=== PATIENT | female | born 1980 | race Caucasian/White ===

== ENCOUNTER 2024-05-23 10:41 | Outpatient (AMB) | payer OTHER, SELFPAY ==
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
[2024-05-23 10:46] VITALS: BP 116/72; PULSE 67; O2SAT 98; BMI 25.9
== END 2024-05-23 11:30 | disposition home or self-care (01) ==
PROVIDERS: PCP Internal Medicine; Visit Provider Psychiatry & Neurology Neurology
DX: G50.0 Trigeminal neuralgia (principal); F07.81 Postconcussional syndrome; M54.2 Cervicalgia
CPT/HCPCS: 99204; G2211

== ENCOUNTER → 2024-05-23 10:41 | Outpatient (BNVA) | payer OTHER, SELFPAY | PROVIDERS: PCP Internal Medicine; Visit Provider Psychiatry & Neurology Neurology | DX: G50.0 Trigeminal neuralgia (principal); F07.81 Postconcussional syndrome; M54.2 Cervicalgia | CPT/HCPCS: 99202 ==

== ENCOUNTER → 2024-07-28 15:22 | Outpatient (BNV) | payer OTHER, SELFPAY | PROVIDERS: PCP Internal Medicine; Visit Provider Radiology Diagnostic Radiology | DX: G50.0 Trigeminal neuralgia (principal); V89.2XXA Person injured in unspecified motor-vehicle accident, traffic, initial encounter | CPT/HCPCS: 70553 ==

== ENCOUNTER 2024-07-28 15:23 | Outpatient (REF) | payer OTHER, SELFPAY ==
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
--- OUTSIDE RECORDS SUMMARY | 2024-07-28 15:26 | XMS_ITS | Clinical Summary ---
Author Organization [address] Address [address] [place] [address] Phone Care Team Providers Care [employer] Name Role Phone Connie Abernathy MD Primary Care Provider [phone] Allergies Active Allergy Reactions Criticality Noted Date Comments Amoxicillin Nausea And Vomiting 03/27/2024 Penicillins Nausea And Vomiting 05/19/2010 Medications Medication Sig Dispensed Refills Start Date End Date Status cholecalciferol (VITAMIN D-3) 50 mcg (2,000 unit) capsule Take 1 capsule (2,000 Units total) by mouth 1 (one) time each day. 4 Active ferrous sulfate 325 mg (65 mg elemental iron) tablet Route: Take by mouth. - Oral Active CYANOCOBALAMIN, VITAMIN B-12, ORAL Take by mouth Act leatha OMEGA-3 FATTY ACIDS ORAL Route: Take by mouth. - Oral Active levothyroxine (SYNTHROID, LEVOTHROID) 75 mcg tabletIndications:O ther specified hypothyroidism TAKE 1 TABLET BY MOUTH EVERY DAY 90 tablet 1 4 Active polyethylene glycol (Golytely) 236-22.74-6.74 -5.86 gram solution Take 4L by mouth once for one dose. May substitue any PEG. Starting at 6PM the night before your procedure drink 1 8oz glasses at your own pace until you complete half of the gallon. Finish 2nd half of the gallon 5 hours before your procedure. 4000 mL 5 Active bisacodyL (DULCOLAX) 5 mg EC tablet Take 2 tablets by mouth right before beginning bowel prep. See instructions provided by the office 2 tablet 5 Active gabapentin (NEURONTIN) 100 mg capsule Take 1 capsule every evening 07/11/19 25 Discontinued azithromycin (ZITHROMAX) 250 mg tablet Take 2 tablets (500 mg total) by mouth 1 (one) time each day for 1 day, THEN 1 tablet (250 mg total) 1 (one) time each day for 4 days. 6 each 5 07/16/19 25 Active Problems Problem Noted Date Diagnosed Date Attention deficit hyperactivity disorder (ADHD) 03/27/2024 Vitamin D deficiency 10/24/2023 History of lobular carcinoma in situ of breast 0 02/28/2019 Overview (07/11/2024): Found during breast reduction, abnormal tissue removed, had tamoxifen, not taking Left breast BRCA negative Chronic neck and back pain 09/05/2018 Hypothyroidism 10/29/2015 Anxiety 11/09/2011 Constipation 05/19/2010 Depression 05/19/2010 Overview (03/27/2024): Patient has a therapist at [facility] Migraine 05/19/2010 Encounters Date Type Department Care Team Description 07/11/2024 9:00 AM EST Office Visit Adult Medicine [address] [phone] Connie Abernathy MD Routine general medical examination at a health care facility (Primary Dx); Hypothyroidism due to acquired atrophy of thyroid; Vitamin D deficiency; History of lobular carcinoma in situ of breast; Encounter for screening mammogram for malignant neoplasm of breast; Screening for colon cancer; Acute cough 05/02/2024 4:30 PM EST Office Visit [address] [phone] Kevin Garcia MD Hypothyroidism, unspecified type (Primary Dx) from Last 3 Months Immunizations Name Administration Dates Next Due PPD Test 08/09/2018 Tdap Tetanus diptheria acell ular pertussis (Boostrix; Adacel) 7yo and older 09/20/2014 Surgical History Surgery Date Site/Laterality Comments OTHER SURGICAL HISTORY D&C after miscarriages twice TONSILLECTOMY BREAST REDUCTION 2019 Bilateral BREAST BIOPSY 2019 Left lcis SCREENING MAMMOGRAM 04/23/2022 Bilateral Medical History Medical History Date Comments Back pain Hypothyroid History of lobular carcinoma in situ of breast 02/28/2019 Found during breast reductio n, abnormal tissue removed, had tamoxifen, not taking Family History Medical History Relation Name Comments Liver disease Father HIV; hepatitis C Heart attack Maternal Grandfather fatal Diabetes Maternal Grandmother HTN Drug abuse Mother HIV; ovarian/ce rvical cancer (?dx unclear) Bipolar disorder Sister 1/2 siblings Relation Name Status Comments Father Maternal Grandfather Maternal Grandmother Alive Mother Paternal Grandfather Paternal Grandmother Sister 1/2 siblings Alive Social History Tobacco Use Types Packs/Day Years Used Date Smoking Tobacco: Former Smokeless Tobacco: Never Alcohol Use Standard Drinks/Week Comments Not Currently 0 (1 standard drink = 0.6 oz pur e alcohol) Sex and Gender Information Value Date Recorded Sex Assigned at Not on file Gender Identity Not on file Sexual Orientation Not on file Job Start Date Occupation Industry Not on file Not on file Not on file Obstetrics History Last Filed Vital Signs Vital Sign Reading Time Taken Comments Blood Pressure 100/58 07/11/2024 8:52 AM EST Pulse 78 07/11/2024 8:52 AM EST Temperature 36.2 ??C (97.2 ??F) 07/11/2024 8:52 AM ES T Respiratory Rate 16 07/11/2024 8:52 AM EST Oxygen Saturation 99% 07/11/2024 8:52 AM EST Inhaled Oxygen Concentration - - Weight 72.4 kg (159 lb 9.6 oz) 07/11/2024 8:52 A M EST Height 165.1 cm (5' 5 ) 07/11/2024 8:52 AM EST Body Mass Index 26.56 07/11/2024 8:52 AM EST Plan of Treatment Upcoming Encounters Date Type Department Care Team (Late st Contact Info) Description 08/16/2024 12:00 PM EST Appointment [facility] [address] [place] [address] Melvin Soto MD [address] [facility] [address] [place] [id number] Health Maintenance Due Date Last Done Comments COVID-19 Vaccine (#1) 1984 Pneumococcal Vaccine: Pediat rics (0 to 5 Years) and At-Risk Patients (6 to 64 Years) (1 of 2 - PCV) 1985 Hepatitis B Vaccines (1 of 3 - 19+ 3-dose series) 1998 Colorectal Cancer Screening: Colonoscopy 06/03/2022 Depression Screening 06/03/2022 HIV Screening 06/03/2022 Hepatitis C Screening 06/03/2022 Social Influencers of Health Screening 06/03/2022 Breast Cancer Screening 10/22/2023 10/21/2021 Influenza Vaccine (#1) 2024 DTaP,Tdap,and Td Vaccines (2 - Td or Tdap) 09/20/2024 09/20/2014 Cervical Cancer Screening: HPV 03/24/2026 03/24/2021 Cholesterol Screening (Lipid Panel) 05/26/2026 05/26/2021 HIB Vaccines Aged Out No longer eligi ble based on patient's age to complete this topic HPV Vaccines Aged Out No longer eligi ble based on patient's age to complete this topic Hepatitis A Vaccines Aged Out No long er eligible based on patient's age to complete this topic IPV Vaccines Aged Out No longer eligi ble based on patient's age to complete this topic MMR Vaccines Aged Out No longer eligi ble based on patient's age to complete this topic Meningococcal ACWY Vaccine Aged Out N o longer eligible based on patient's age to complete this topic RSV Immunization Patients Un caren 20 months Aged Out No longer eligible b ased on patient's age to complete this topic Varicella Vaccines Aged Out No longer eligible based on patient's age to complete this topic Procedures Procedure Name Priority Date/Time Associated Diagnosis Comments VITAMIN D 25 HYDROXY Routine 05/01/2024 12:24 PM EST Fatigue THYROID STIMULATING HORMONE Routine 05/01/2024 12:24 PM EST Fatigue IRON AND TIBC Routine 05/01/2024 12:24 PM EST Fatigue FERRITIN Routine 05/01/2024 12:24 PM EST Fatigue SCREENING MAMMOGRAPHY BI 2-VIEW BREAST INC CAD Routine 10/21/2021 9:08 AM EDT Encounter for other screening for malignant neoplasm of breast LIPID PANEL Routine 05/26/2021 HM HPV Routine 03/24/2021 from Last 3 Months or Most Recently Relevant to Health Maintenance Results * Iron and TIBC (05/01/2024 12:24 PM EST) Iron 89 40 - 150 mcg/dL LAB CHEMISTRY METHOD 05/01/2024 5:32 PM EST [facility] TIBC 326 250 - 450 mcg/dL LAB CHEMISTRY METHOD 05/01/2024 5:32 PM EST [facility] Iron Saturation 27 15 - 50 % LAB CHEMISTRY METHOD 05/01/2024 5:32 PM EST [facility] Blood Venous blood specimen / Unknown Venipuncture / Unknown 05/01/2024 12:24 PM EST 05/01/2024 12:24 PM EST Kevin Garcia MD LAB BLOOD ORDERABLES [facility] [address] [place] [address], * (ABNORMAL) Vitamin D 25 hydroxy (05/01/2024 12:24 PM EST) Vit D, 25-Hydroxy 25.8(L) 30.0 - 80.0 ng/mL LAB CHEMISTRY METHOD 05/01/2024 5:39 PM EST [facility] Blood Venous blood specimen / Unknown Venipuncture / Unknown 05/01/2024 12:24 PM EST 05/01/2024 12:24 PM EST Kevin Garcia MD LAB BLOOD ORDERABLES [facility] [address] [place] [address], * Thyroid stimulating hormone (05/01/2024 12:24 PM EST) Pathologist [facility] TSH 1.41 0.40 - 4.00 mcIU/mL LAB CHEMISTRY METHOD 05/01/2024 5:39 PM EST [facility] Blood Venous blood specimen / Unknown Venipuncture / Unknown 05/01/2024 12:24 PM EST 05/01/2024 12:24 PM EST Kevin Garcia MD LAB BLOOD ORDERABLES Performing Organization Address [facility] de Phone Number [facility] [address] [place] [address], * Ferritin (05/01/2024 12:24 PM EST) [facility] Ferritin 24 8 - 252 ng/mL LAB CHEMISTRY METHOD 05/01/2024 5:35 PM EST [facility] Blood Venous blood specimen / Unknown Venipuncture / Unknown 05/01/2024 12:24 PM EST 05/01/2024 12:24 PM EST Kevin Garcia MD LAB BLOOD ORDERABLES Performing Organization Address [facility] de Phone Number [facility] [address] [place] [address], * SCREENING MAMMOGRAPHY BI 2-VIEW BREAST INC CAD (10/21/2021 9:08 AM EDT) Anatomical Region Laterality Modality Radiographic Candice ging 09/30/2021 10:0 8 AM EDT Narrative 10/21/2021 12:00 PM EDT This is a summary report. The complete report is available in the patient's medical record. If you cannot access the medical record, please contact the sending organization for a detailed fax or copy. Full field digital screening 2D and 3D mammography, reviewed with CAD and compared to previous mammograms of 01/02/2019 and 08/05/1999 and.. ??The breasts are composed of fatty and fibroglandular tissue. ??No suspicious mass, architectural distortion or suspicious calcifications are identified. IMPRESSION: : No mammographic evidence of malignancy. BIRADS 1-Negative; N. 5 year breast cancer risk assessment N/A Lifetime breast cancer risk assessment N/A Breast cancer risk category Breast cancer risk not assessed Procedure Note Juanis Corona MD - 06/15/2022 This is a summary report. The complete report is available in thepatient's medical record. If you cannot access the medical record, pleasecontact the sending organization for a detailed fax or copy. Full field digital screening 2D and 3D mammography, reviewed with CAD andcompared to previous mammograms of 01/02/2019 and 08/05/1999 and.. Thebreasts are composed of fatty and fibroglandular tissue. No suspiciousmass, architectural distortion or suspicious calcifications areidentified. IMPRESSION: : No mammographic evidence of malignancy. BIRADS 1-Negative; N. 5 year breast cancer risk assessment N/A Lifetime breast cancer risk assessment N/A Breast cancer risk category Breast cancer risk not assessed Patrick ALBA IMG XR PROCEDURE S * (ABNORMAL) Lipid panel (05/26/2021) Pathologist [facility] LDL/HDL Ratio 3 0 - 4 Triglycerides 59 0 - 150 mg/dL Cholesterol 182 0 - 200 mg/dL HDL 66 40 mg/dL LDL Cholesterol 105(A) 0 - 100 mg/dL Blood Venous blood specimen / Unknown Historical Provider LAB BLOOD ORDERAB LES * Cervical Cancer Screening: HPV (03/24/2021) Pathologist [facility] Cervical Cancer Screening: HPV negative,a bstracted Historical Provider MD AXEL CARR E from Last 3 Months or Most Recently Relevant to Health Maintenance Care Teams [employer] Relationship Specialty Start Date End Date Connie Abernathy MD [address] [place] [address] PCP - General Internal Medicine 02/12/21
--- OUTSIDE RECORDS SUMMARY | 2024-07-28 15:26 | XMS_ITS | Encounter Summary ---
Author Organization [facility] [place] [address] Care Team Providers Care Client Account Specialist Name Role Phone Connie Abernathy MD Primary Care Provider [phone] Reason for Referral * Consultation (Routine) - Authorized Specialty Diagnoses / Procedures Referred By Contact Referred To Contact Gastroenterology Diagnoses Screening for colon cancer Connie Abernathy MD [address] [place] [id number] [facility] Gastroenterology [address] [address] Referral ID Status Reason Start Date Expiration Date Visits Requested Visits Authorized [id number] Authorized Specialty Services Required 07/11/2024 07/11/2025 1 1 * Imaging (Routine) - Authorized Specialty Diagnoses / Procedures [facility] Referred To Contact Radiology Diagnoses Encounter for screening mammogram for malignant neoplasm of breast Procedures MG Mammo Digital Screening bryantat Connie Abernathy MD [address] [place] [address] [address], [place] Referral ID Status Reason Start Date Expiration Date V isits Requested Visits Authorized [id number] Authorized 07/11/2024 07/11/2025 1 1 Reason for Visit * Reason Comments Annual Exam Hypothyroidism Cough Encounter Details Date Type Department Care Team (Late st Contact Info) Description 07/11/2024 9:00 AM EST Office Visit Adult Medicine [facility] [address] [place] [address] Connie Abernathy MD [address] [place] [phone] Routine general medical examination at a health care facility (Primary Dx); Hypothyroidism due to acquired atrophy of thyroid; Vitamin D deficiency; History of lobular carcinoma in situ of breast; Encounter for screening mammogram for malignant neoplasm of breast; Screening for colon cancer; Acute cough Social History Tobacco Use Types Packs/Day Years [...] file Not on file Not on file documented as of this encounter Last Filed Vital Signs Vital Sign Reading [...] Mass Index 26.56 07/11/2024 8:52 AM EST documented in this encounter Ordered Prescriptions Prescription Sig Dispensed Refills Start Date End Da te azithromycin (ZITHROMAX) 250 mg tablet Take 2 tablets (500 mg total) by mouth 1 (one) time each day for 1 day, THEN 1 tablet (250 mg total) 1 (one) time each day for 4 days. 6 each 07/11/2024 07/16/2024 documented in this encounter Progress Notes * Connie Abernathy MD - 07/11/2024 9:00 AM EST CHIEF COMPLAINT: Chief Complaint Patient presents with Annual Exam Hypothyroidism Cough IDENTIFIER: Kelly Lay is a 44 y.o. old female who comes for evaluation of general medical health. HPI: She comes for her yearly exam. She notes that all of her children have the flu, none have COVID andshe started with a cough yesterday bringing up some brown sputum, mild shortness of breath, no fever or sore throat, no ear pain, no shaking chills. She is following ongoing with neurology with previous trigeminal neuralgia, she is taking vitamin B12, magnesium, continues on thyroid replacement forhypothyroidism and is taking vitamin D for vitamin D deficiency. She did recently see endocrine andthyroid levels have been good. She will be due for tetanus booster at the end of August. She has nothad a mammogram in several years and has never had a colonoscopy. She did have lobular carcinoma insitu found during a routine breast reduction. She has been following with breast services as well as oncology. She continues on omega-3 fatty acids as well. She does have anxiety and ADHD, is awaiting a callback from [facility]. She is declining flu vaccine. ROS: General: No malaise, significant weight loss or fever HEENT: No changes in hearing or vision, nose bleeds Neck: No pain or significant neck swelling Respiratory: As noted did Cardiovascular: No chest pain, palpitations, no orthopnea GI: No nausea or vomiting, diarrhea, blood in stools or black stools : No dysuria, frequency or incontinence Musculoskeletal: No joint pain or swelling, no muscle pain or stiffness Skin: No lesions, rash or itching Psych: As noted Heme/lymph: No prolonged bleeding, bruising, easily Endocrine: No cold or heat intolerance, polyuria, polydipsia Neuro no persistent headache, syncope, seizures, weakness or numbness The remainder of the review of systems is noncontributory. PAST MEDICAL HISTORY: Patient Active Problem List Diagnosis Date Noted Attention deficit hyperactivity disorder (ADHD) 03/27/2024 Vitamin D deficiency 10/24/2023 History of lobular carcinoma in situ of breast 02/28/2019 Chronic neck and back pain 09/05/2018 Hypothyroidism 10/29/2015 Anxiety 11/09/2011 Constipation 05/19/2010 Depression 05/19/2010 Migraines 05/19/2010 SURGICAL HISTORY: Past Surgical History: Procedure Laterality Date BREAST BIOPSY Left 2018 [facility] BREAST REDUCTION Bilateral 2018 OTHER SURGICAL HISTORY D&C after miscarriages twice SCREENING MAMMOGRAM Bilateral 04/23/2022 TONSILLECTOMY IMMUNIZATIONS: Immunization History Administered Date(s) Administered PPD Test 08/09/2018 Tdap Tetanus diptheria acellular pertussis (Boostrix; Adacel) 7yo and older 09/20/2014 SOCIAL HISTORY: Social History Tobacco Use Smoking status: Former Smokeless tobacco: Never Substance Use Topics Alcohol use: Not Currently FAMILY HISTORY: Family History Problem Relation Name Age of Onset Drug abuse Mother HIV; ovarian/cervical cancer (?dx unclear) Liver disease Father HIV; hepatitis C Bipolar disorder Sister 1/2 siblings Diabetes Maternal Grandmother HTN Heart attack Maternal Grandfather 45 fatal ACTIVE MEDICATIONS: Outpatient Medications Marked as Taking for the 07/11/24 encounter (Office Visit) with Connie Abernathy MD Medication Sig Dispense Refill cholecalciferol (VITAMIN D-3) 50 mcg (2,000 unit) capsule Take 1 capsule (2,000 Units total) by mouth 1 (one) time each day. CYANOCOBALAMIN, VITAMIN B-12, ORAL Take by mouth ferrous sulfate 325 mg (65 mg elemental iron) tablet Route: Take by mouth. - Oral levothyroxine (SYNTHROID, LEVOTHROID) 75 mcg tablet TAKE 1 TABLET BY MOUTH EVERY DAY 90 tablet 1 OMEGA-3 FATTY ACIDS ORAL Route: Take by mouth. - Oral MEDICATION DISCONTINUED/REORDERED: Medications Discontinued During This Encounter Medication Reason gabapentin (NEURONTIN) 100 mg capsule ALLERGIES: Amoxicillin and Penicillins PHYSICAL EXAM: Blood pressure 100/58, pulse 78, temperature 36.2 ??C (97.2 ??F), temperature source Temporal, resp. rate 16, height 1.651 m (65 ), weight 72.4 kg (159 lb 9.6 oz), last menstrual period 07/01/2024, SpO2 99%. Body mass index is 26.56 kg/m??.BMI is greater than 25.0 (above the normal range) - see Plan General: patient is in no acute distress. Eye exam: INDIRA EDWARDS. ENT exam: pharynx is clear no tonsillar enlargement or exudates. Tympanic membranes are clear without air fluid levels or erythema. Neck supple without adenopathy, no thyromegaly. Lungs clear with auscultation. Heart: regular S1S2 without murmur, rub or gallop. Abdominal exam: soft, nontender, no masses or organomegaly. Bowel soundsnormal active. Extremities without cyanosis, clubbing or edema. Neurological: exam is nonfocal. Strength, reflexes, sensation in the upper and lower extremities intact. Skin exam: without lesions. LABS/IMAGING: Lab Results Component Value Date CHOL 182 05/26/2021 LDL 105 (A) 05/26/2021 HDL 66 05/26/2021 TRIG 59 05/26/2021 Lab Results Component Value Date TSH 1.41 05/01/2024 Vitamin D level 25.8 Last chemistries normal IMPRESSION: 1. Routine general medical examination at a health care facility 2. Hypothyroidism due to acquired atrophy of thyroid 3. Vitamin D deficiency 4. History of lobular carcinoma in situ of breast 5. Encounter for screening mammogram for malignant neoplasm of breast 6. Screening for colon cancer 7. Acute cough PLAN: She is following with endocrine, thyroid levels have been appropriate and she did increase her vitamin D intake after her last level. She is seeing neurology with previous trigeminal neuralgia, is referred for mammogram as well as screening colonoscopy. She will follow ongoing with breast services and oncology given the previous lobular carcinoma in situ. She does have an acute cough, all of her children are sick with the flu which she does not appear to have today, will start on Zithromax. Judd do home COVID testing and call if it is positive. 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 Ongoing exercise, weight control, regular eye exam and monthly self br east exam recommended. Did you have a dental visit in the last 12 months? No Did you have a dental problem in the last 6 months? No, dental visit was recommended to her I have reviewed the following sections of the chart: medical history, social history, family history Genetic screening was performed: She has already had testing and is negative documented in this encounter Plan of Treatment Upcoming Encounters Date Type Department Care Team (Late st Contact Info) Description 08/16/2024 12:00 PM EST Appointment [facility] Endoscopy [address] [place] [phone] Melvin Soto MD [address] [address] Scheduled Orders Name Type Priority Associated Diagnoses Orde r Schedule MG Mammo Digital Screening bilat Imaging Routine Encounter for screening mammogram for malignant neoplasm of breast 1 Occurrences starting 07/11/2024 until 07/11/2025 Scheduled Referrals Name Type Priority Associated Diagnoses Order Schedule Ambulatory referral to Gastroenterology Outpatient Referral Routine Screening for colon cancer 1 Occurrences starting 07/11/2024 until 07/11/2025 documented as of this encounter Visit Diagnoses Diagnosis Routine general medical examination at a health care facility- Primary Hypothyroidism due to acquired atrophy of thyroid Vitamin D deficiency History of lobular carcinoma in situ of breast Encounter for screening mammogram for malignant neoplasm of breast Screening for colon cancer Special screening for malignant neoplasms, colon Acute cough documented in this encounter Discontinued Medications Medication Sig Discontinue Reason Start Date End Da te gabapentin (NEURONTIN) 100 mg capsule Take 1 capsule every evening 07/11/2024 documented as of this encounter Care Teams Client Account Specialist Relationship Specialty Start Date End Date Connie Abernathy MD [address] [place] [address] PCP - General Internal Medicine 02/12/21 documented as of this encounter
[2024-07-28] MEDS: gadobutroL 7.5 ML VIAL IVPUSH (16:08)
== END 2024-07-28 15:24 | disposition home or self-care (01) ==
LOC: HO.MRI 15:23
PROVIDERS: PCP Internal Medicine; Visit Provider Psychiatry & Neurology Neurology
DX: G50.0 Trigeminal neuralgia (principal); F07.81 Postconcussional syndrome
CPT/HCPCS: 70553; A9585

== ENCOUNTER 2024-10-26 08:05 | Outpatient (REF) | payer OTHER, SELFPAY ==
--- NOTE | ~2024-10-26 | XR_ITS ---
EXAMINATION: XR CERVICAL SPINE CLINICAL INFORMATION: M54.2 - Cervicalgia COMPARISON: None available. TECHNIQUE: 3 views of the cervical spine were obtained. FINDINGS: Craniocervical junction is intact and aligned. Marginal osteophyte formation and endplate sclerosis and decreased intervertebral disc height C5-6 and C6-7 levels. No acute cortical disruption. No gross malalignment. No lytic or blastic lesions. Upper airway is patent. XR/XR cervical spine 3V IMPRESSION: Multilevel cervical spondylosis C5-6 and to a lesser extent C6-7 levels. Electronically signed by: Ananda Howard MD 10/26/2024 12:40 PM EDT
--- OUTSIDE RECORDS SUMMARY | 2024-10-26 08:14 | XMS_ITS | Clinical Summary ---
Author Organization [facility] Address [address] [place] [id number] Care Team Providers Care Director Of Market Analysis Name Role Phone Carlos Alberto Alvarado MD Primary Care Provider Allergies Active Allergy Reactions Criticality Noted Date Comments Amoxicillin 12/01/2018 Oxycodone Rash Low 12/01/2018 Penicillins 12/01/2018 Medications Medication Sig Dispensed Refills Start Date End Date Status levothyroxine (SYNTHROID, LEVOXYL) tablet 25 mcg Take 1 tablet (25 mcg total) by mouth every morning on an empty stomach. 0 Active ferrous sulfate 325 (65 FE) MG tablet Take 1 tablet (325 mg total) by mouth every morning with breakfast. 0 Active levothyroxine (SYNTHROID) tablet 75 mcg Take 1 tablet (75 mcg total) by mouth every morning on an empty stomach. 0 Active Active Problems No known active problems Family History Medical History Relation Name Comments No Sig Med Hx Daughter Hepatitis Father Other Father Not much known history Other Half-Brother paternal- Nocon tact Other Half-Sister 1 paternal- Noco ntact Other Half-Sister 2 maternal - hea lthy Other Half-Sister 3 maternal - hea lthy Cancer Maternal Uncle 1 Lung Cancer Maternal Uncle 2 Lung Cancer Mother Ovarian cancer No Sig Med Hx Son 1 No Sig Med Hx Son 2 No Sig Med Hx Son 3 No Sig Med Hx Son 4 Relation Name Status Comments Daughter Alive Father Half-Brother Alive Half-Sister 1 Alive Half-Sister 2 Alive Half-Sister 3 Alive Maternal Grandfather Maternal Grandmother Alive Maternal Uncle 1 Alive Maternal Uncle 2 Alive Mother Son 1 Alive Son 2 Alive Son 3 Alive Son 4 Alive Social History Tobacco Use Types Packs/Day Years Used Date Smoking Tobacco: Former Cigarettes 0.5 15 Q uit: 08/25/2018 Smokeless Tobacco: Never Tobacco Cessation:Counseling Given: No Comments:Off and on Alcohol Use Standard Drinks/Week Comments No 0 (1 standard drink = 0.6 oz pur e alcohol) Sex and Gender Information Value Date Recorded Sex Assigned at Not on file Gender Identity Not on file Sexual Orientation Not on file Job Start Date Occupation Industry Not on file Not on file Not on file Last Filed Vital Signs Vital Sign Reading Time Taken Comments Blood Pressure 121/65 03/15/2023 11:43 AM EDT Pulse 64 03/15/2023 11:43 AM EDT Temperature 37 ??C (98.6 ??F) 03/15/2023 11:43 AM EDT Respiratory Rate - - Oxygen Saturation 100% 03/15/2023 11:43 AM EDT Inhaled Oxygen Concentration - - Weight 69.2 kg (152 lb 9.6 oz) 03/15/2023 11:43 AM EDT Height 165.1 cm (5' 5 ) 03/15/2023 11:43 AM EDT Body Mass Index 25.39 03/15/2023 11:43 AM EDT Plan of Treatment Health Maintenance Due Date Last Done Comments Hepatitis B Vaccines (1 of 3 - 3-dose series) 1979 Hepatitis C Screening 1979 COVID-19 Vaccine (#1) 1979 Depression Screening 1991 Preventative Health Evaluation 1997 Cervical Cancer Screening (P ap Smear) 2000 Influenza Vaccine (#1) 2024 Colon Cancer Screening (Colonoscopy) 2024 DTap / Tdap / Td (2 - Td or Tdap) 09/20/2024 015 Pneumococcal Vaccine Aged Out No long er eligible based on patient's age to complete this topic RSV Ped < 20 months Aged Out No longe r eligible based on patient's age to complete this topic Care Teams Director Of Market Analysis Relationship Specialty Start Date End Date Carlos Alberto Alvarado MD PCP - General Internal Medicine 12/01/18
--- OUTSIDE RECORDS SUMMARY | 2024-10-26 08:14 | XMS_ITS | Clinical Summary ---
Author Organization [address] Address [address] [place] [phone] Phone Care Team Providers Care Multi Site Leasing Consultant Name Role Phone Connie Abernathy MD Primary Care Provider [phone] Allergies Active Allergy Reactions Criticality Noted Date Comments Amoxicillin Nausea And Vomiting 03/27/2024 Penicillins Nausea And Vomiting 05/19/2010 Medications ferrous sulfate 325 mg (65 mg elemental iron) tablet Route: Take by mouth. - Oral Active CYANOCOBALAMIN, VITAMIN B-12, ORAL Take by mouth Active OMEGA-3 FATTY ACIDS ORAL Route: Take by mouth. - Oral Active levothyroxine (SYNTHROID, LEVOTHROID) 75 mcg tabletIndications :Other specified hypothyroidism TAKE 1 TABLET BY MOUTH EVERY DAY 90 tablet 1 024 Active polyethylene glycol (Golytely) 236-22.74-6.74 -5.86 gram solution Take 4L by mouth once for one dose. May substitue any PEG. Starting at 6PM the night before your procedure drink 1 8oz glasses at your own pace until you complete half of the gallon. Finish 2nd half of the gallon 5 hours before your procedure. 4000 mL 025 Active bisacodyL (DULCOLAX) 5 mg EC tablet Take 2 tablets by mouth right before beginning bowel prep. See instructions provided by the office 2 tablet 025 Active cholecalciferol (VITAMIN D-3) 50 mcg (2,000 unit) capsule TAKE 1 CAPSULE BY MOUTH EVERY DAY 90 capsule 3 025 Active cholecalciferol (VITAMIN D-3) 50 mcg (2,000 unit) capsule Take 1 capsule (2,000 Units total) by mouth 1 (one) time each day. 024 2024 Discontinued Active Problems Problem Noted Date Diagnosed Date [...] Overview (03/27/2024): Patient has a therapist at [facility] 05/19/2010 Encounters Date Type Department Care Team Description 08/13/2024 Telephone Gastroenterology - [address] [facility] [address] [place] [address] Melvin Soto MD Special Procedure from Last 3 Months Immunizations Name Administration [...] drink = 0.6 oz pur e alcohol) Comments Unknown Sex and Gender Information Value Date Recorded Sex Assigned at Not on file Legal Sex Female 1:01 AM EST Gender Identity Not on file Sexual Orientation Not on file Obstetrics History Last Filed [...] Care Team (Late st Contact Info) Description 12/31/2024 4:30 PM EDT Office Visit Adult Medicine [address] [phone] Kaya Feldman PA [address] [place] [address] Health Maintenance Due Date Last Done Comments COVID-19 Vaccine (#1) 1984 Hepatitis B Vaccines (1 of 3 - 19+ 3-dose series) 1998 Pneumococcal Vaccine: Pediat rics (0 to 5 Years) and At-Risk Patients (6 to 64 Years) (1 of 2 - PCV) 1998 Colorectal Cancer Screening: Colonoscopy 06/03/2022 Depression Screening 06/03/2022 HIV Screening 06/03/2022 Hepatitis C Screening 06/03/2022 Social Influencers of Health Screening 06/03/2022 Breast Cancer Screening 10/22/2023 10/21/2021 DTaP,Tdap,and Td Vaccines (2 - Td or Tdap) 09/20/2024 09/20/2014 Influenza Vaccine (Season Ended) 2025 Cervical Cancer Screening: HPV 03/24/2026 03/24/2021 Cholesterol [...] patient's age to complete this topic Meningococcal B Vaccine Aged Out No l onger eligible based on patient's age to complete this topic RSV Immunization Patients Un caren 20 months Aged Out No longer eligible b ased on patient's age to complete this topic Varicella Vaccines Aged Out No longer eligible based on patient's age to complete this topic Procedures Procedure Name Priority Date/Time Associated Diagnosis Comments SCREENING MAMMOGRAPHY BI 2-VIEW BREAST INC CAD Routine 10/21/2021 9:08 AM EDT Encounter for other screening for malignant neoplasm of breast LIPID PANEL Routine 05/26/2021 HM HPV Routine 03/24/2021 from Last 3 Months or Most Recently Relevant to Health Maintenance Results * SCREENING MAMMOGRAPHY BI 2-VIEW BREAST INC [...] risk not assessed Patrick ALBA IMG XR PROCEDURES Final Result * (ABNORMAL) Lipid panel (05/26/2021) [facility] LDL/HDL Ratio 3 0 - 4 Triglycerides 59 0 - 150 mg/dL Cholesterol 182 0 - 200 mg/dL HDL 66 >=40 mg/dL LDL Cholesterol 105(A) 0 - 100 mg/dL Blood Venous blood specimen / Unknown Historical Provider LAB BLOOD ORDERABLES Debi l Result * Cervical Cancer Screening: HPV (03/24/2021) Pathologist [facility] Cervical Cancer Screening: HPV negative,a bstracted Historical Provider HEALTH MAINTENANCE Final Result from Last 3 Months or Most Recently Relevant to Health Maintenance Insurance [facility] [employer] Care Teams Multi Site Leasing Consultant Relationship Specialty Start Date End Date Connie Abernathy MD [address] [place] [address] PCP - General Internal Medicine 02/12/21
== END 2024-10-26 08:06 | disposition home or self-care (01) ==
LOC: HO.XRAY 08:05
PROVIDERS: PCP Internal Medicine; Visit Provider Psychiatry & Neurology Neurology
DX: M54.2 Cervicalgia (principal)
CPT/HCPCS: 72040

== ENCOUNTER → 2024-10-26 08:11 | Outpatient (BNV) | payer OTHER, SELFPAY | PROVIDERS: PCP Internal Medicine; Visit Provider Radiology Diagnostic Radiology | DX: M47.812 Spondylosis without myelopathy or radiculopathy, cervical region (principal) | CPT/HCPCS: 72040 ==

== ENCOUNTER 2025-02-07 07:33 | Outpatient (AMB) | payer OTHER, SELFPAY ==
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
[2025-02-07 07:35] VITALS: BP 120/82; PULSE 50; O2SAT 99; BMI 25.6
--- OUTSIDE RECORDS SUMMARY | 2025-02-07 07:35 | XMS_ITS | Encounter Summary ---
Author Organization [facility] [place] [address] Care Team Providers Care Energy Conservation Engineer Name Role Phone Connie Abernathy MD Primary Care Provider [phone] Reason for Visit * Reason Onset Date Comments Letter for School/Work 02/01/2025 Encounter Details Date Type Department Care Team (Late st Contact Info) Description 02/01/2025 Telephone Adult Medicine [facility] [address] [place] [address] Connie Abernathy MD [address], [place] [id number] Letter for School/Work Social History Tobacco Use Types Packs/Day Years Used Date Smoking Tobacco: Former Smokeless Tobacco: Never Alcohol Use Standard Drinks/Week Comments Not Currently 0 (1 standard drink = 0.6 oz pur e alcohol) Comments Unknown Sex and Gender Information Value Date Recorded Sex Assigned at Not on file Legal Sex Female 1:01 AM EST Gender Identity Not on file Sexual Orientation Not on file documented as of this encounter Progress Notes * Erica Mishra - 02/01/2025 3:51 PM EDT Letter Request Call: Who is requesting the letter?: The patient Reason for letter: for employment Specific notations needed in body of letter: Patient has no restrictions and is able to work Date needed for completion: susie When completed: call patient at [phone] and she will pick it up documented in this encounter Plan of Treatment Not on file documented as of this encounter Visit Diagnoses Not on filedocumented in this encounter Care Teams Energy Conservation Engineer Relationship Specialty Start Date End Date Connie Abernathy MD [address] [place] [id number] PCP - General Internal Medicine 02/12/21 documented as of this encounter
--- OUTSIDE RECORDS SUMMARY | 2025-02-07 07:36 | XMS_ITS | Clinical Summary ---
Author Organization [facility] Address [address] [place] [address] Care Team Providers Care Firer Diesel Locomotive Name Role Phone Carlos Alberto Alvarado MD Primary Care Provider [phone] Allergies Active Allergy Reactions Criticality Noted Date [...] 64 03/15/2023 11:43 AM EDT Temperature 37 C (98.6 F) 03/15/2023 11:43 AM EDT Respiratory Rate - [...] Cervical Cancer Screening (P ap Smear) 2000 Colon Cancer Screening (Colonoscopy) 2024 DTap / Tdap / Td (2 - Td or Tdap) 09/20/2024 015 Influenza Vaccine (#1) 2025 Pneumococcal Vaccine Aged Out No long er eligible based on patient's age to complete this topic RSV Ped < 20 months Aged Out No longe r eligible based on patient's age to complete this topic Care Teams Firer Diesel Locomotive Relationship Specialty Start Date End Date Carlos Alberto Alvarado MD PCP - General Internal Medicine 12/01/18
--- OUTSIDE RECORDS SUMMARY | 2025-02-07 07:36 | XMS_ITS | Clinical Summary ---
Author Organization [facility] Address [address] [place] [address] Phone Care Team Providers Care Ply Bander Name Role Phone Connie Abernathy MD Primary Care Provider [phone] Social History Tobacco Use Types Packs/Day Years Used Date Smoking Tobacco: Never Assessed Comments Unknown Sex and Gender Information Value Date Recorded Sex Assigned at Not on file Legal Sex Female 11:11 AM EDT Gender Identity Not on file Sexual Orientation Not on file Plan of Treatment Not on file Medical Devices Not on file Insurance A's Child [employer]ANCE [employer]CO [employer] A's Child [employer] ACO [facility] A[facility] Care Teams Ply Bander Relationship Specialty Start Date End Date Connie Abernathy MD [address] [place] [address] PCP - General Internal Medicine 04/10/24 Additional Source Comments The information contained in this document represents components of the legal health record. It is not the complete legal health record.[facility]
--- OUTSIDE RECORDS SUMMARY | 2025-02-07 07:36 | XMS_ITS ---
Author Name [facility] Organization Unknown Care Team Organization Name Specialty Phone Email Start Date End Da te [facility] Connie Abernathy Primary Care 05/04/2022
== END 2025-02-07 08:11 | disposition home or self-care (01) ==
LOC: HO.HSMS 07:34
PROVIDERS: PCP Internal Medicine; Visit Provider Psychiatry & Neurology Neurology
DX: G50.0 Trigeminal neuralgia (principal); F07.81 Postconcussional syndrome; M54.2 Cervicalgia
CPT/HCPCS: 99214

== ENCOUNTER → 2025-02-07 07:33 | Outpatient (BNVA) | payer OTHER, SELFPAY | PROVIDERS: PCP Internal Medicine; Visit Provider Psychiatry & Neurology Neurology | DX: G50.0 Trigeminal neuralgia (principal); F07.81 Postconcussional syndrome; M54.2 Cervicalgia | CPT/HCPCS: 99212 ==